=== PATIENT | male | born 1985 | race Caucasian/White ===

== ENCOUNTER 2019-02-13 07:03 | Emergency (ER) | payer OTHER ==
[~2019-02-13] VITALS: Wt 88.0 kg
[2019-02-13 07:07] VITALS: BP 135/87; PULSE 53; RESP 18
[2019-02-13] MEDS ORDERED: KETOROLAC 60 MG INJ IM STA (07:28)
[2019-02-13] MEDS ORDERED: HYDROCODONE/APAP (5/325) TAB PO ONE (07:30)
--- NOTE | 2019-02-13 08:09 | ERD ---
ER Documentation Chief Complaint Chief Complaint R wrist pain with swelling from lifting bricks days ago . no trauma HPI This is a 34-year-old male with a nonsignificant past medical history presents to ED with right dorsal wrist pain times 4 days. Patient states that he was lifting bricks 4 days ago and started to experience wrist pain. Patient rates pain at an 8 out of 10. Admits to some painful range of motion and decreased range of motion. Denies fever, chills, tingling, numbness, lack sensation, swelling and all other symptoms. No known drug allergies. No drug use. ROS All systems reviewed and are negative except as per history of present illness. Allergies Allergies: Coded Allergies: No Known Allergy (Unverified , 02/13/19) FmHx Family History: No diabetes Physical Exam Vitals Vital Signs Date Temp Pulse Resp B/P (MAP) Pulse Ox O2 O2 Flow FiO2 Time Delivery Rate 02/13/19 98.0 53 18 135/87 99 07:07 (103) Physical Exam Physical Exam Vitals signs: Reviewed by me. General: Well developed, well nourished, in no acute distress. Patient is awake and alert. Head: Normocephalic, atraumatic. Eyes: Normal conjunctiva, Pupils PERRLA, EOM intact grossly ENT: Pharynx is clear, Moist mucous membranes, external ears, nose and mouth normal MSK: No edema, no unilateral swelling, 5/5 strength Upper Extremity -right Skin: No laceration, or evidence of external trauma Compartments: Soft Motor: Full active range of motion shoulder/elbow/wrist/hand Sensation: Intact shoulder/pinky/middle finger/thumb web space Bones: Moderate tenderness palpation along dorsal wrist, nontender humerus/elbow/forearm/hand Snuffbox: Nontender Joints: No effusion Pulses/Perfusion: 2+ radial, Capillary refill < 2 seconds Radial ulnar and median nerve tested for sensory and motor function with no deficit Neurologic: Alert and oriented, moving all extremities, normal speech, no focal weakness, no cerebellar signs. Normal mentation Skin: warm and dry, No rash Psych: Normal mood Results 24 hrs Current Medications Medications Dose Sig/Sandra Start Time Status Last (Trade) Ordered Route PRN Stop Time Admin Dose Reason Admin Ketorolac 60 mg ONCE STAT 02/13/19 DC 02/13/19 Tromethamine IM 07:28 07:44 (Toradol) 02/13/19 07:30 1 tab ONCE ONCE 02/13/19 DC 02/13/19 Acetaminophen PO 07:30 07:45 / 02/13/19 07:31 Hydrocodone Bitart ([place] ()) Procedures/MDM EKG, MONITORS, & DIAGNOSTIC IMAGING: [place] [id number] Radiology Main Line: [phone] DIAGNOSTIC IMAGING REPORT Patient: SHARATH SMITH : 1985 Age: 34 Sex: M MR #: [id number] DOS: 02/13/19 0728 Ordering MD: EMANUEL HAGAN PA-C Location: [facility] Room/Bed: PROCEDURE: Right wrist x-ray CLINICAL INDICATION: right dorsal wrist pain TECHNIQUE: AP, lateral and oblique views of the wrist were obtained. COMPARISON: None FINDINGS: There is normal mineralization. No acute fracture or dislocation is seen. There are no significant degenerative changes. There is no significant soft tissue swelling. IMPRESSION: Normal x-ray of the right wrist. .Conrad Clark MD, MD Date Time Electronically viewed and signed by .Conrad Clark MD, MD on 02/13/2019 08:41 .A/ CC: EMANUEL HAGAN PA-C [phone] PROCEDURES: Splint Type: Velcro wrist splint Extremity: Right upper extremity Indication: Pain Splint Assessment: Neurovascularly intact post splint placement with good fit. The patient was consented at bedside prior to splint application and states understanding of risks, benefits, and alternatives. The patient was neurov ascularly intact prior to and status post application of the splint. The patient tolerated the procedure well and there were no complications ER COURSE: The patient was given IM Toradol and [place] The medication was well tolerated and the patient reports improvement in symptoms. The patient was stable throughout ED course. I kept the patient and/or family informed of laboratory and diagnostic imaging results throughout the emergency room course. The patient was promptly evaluated and a treatment plan was devised based on H&P and other data. This plan was discussed with the patient who agreed and had no further questions or concerns prior to discharge. MEDICAL DECISION MAKING: This is a 34-year-old male who presents ED with right dorsal wrist pain times 4 days. X-rays are unremarkable. This is likely a muscle strain given patient's line of work. Patient was advised to follow-up with hris specialist if pain continues. He may need an MRI to rule out any tendon or ligament injury. History and physical examination other data not consistent with emergent processes including but not limited to fracture, dislocation, tendon rupture, ischemia, neurovascular injury, compartment syndrome, septic joint, avascular necrosis, osteomyelitis, necrotizing fasciitis, septic joint, septic arthritis, or other emergent conditions. Patient's vitals are stable and can be managed outpatient with close follow-up. Advised patient to follow-up with primary care in the next 48 hours. Return to ED with any worsening symptoms. DISPOSITION PLAN: We discussed follow up with the patient's primary care doctor within 24 to 48 hours. Patient counseled regarding my diagnostic impression and care plan. Prior to discharge all questions answered. Pt agrees with treatment plan and understands strict return precautions. Precautionary instructions provided including instructions to return to the ER if not improving or for any worsening or changing symptoms or concerns. SPECIALIST FOLLOW UP RECOMMENDED: ortho Patient has been advised to follow up with primary care in 1-2 days. Disclaimer: Inadvertent spelling and grammatical errors are likely due to EHR/dictation software use and do not reflect on the overall quality of patient care. Also, please note that the electronic time recorded on this note does not necessarily reflect the actual time of the patient encounter. Blood Pressure Assessment: Patient's blood pressure was elevated (>120/80) but appears stable without evidence of hypertension emergency or urgency. The patient was counseled about the risks of hypertension and urged to pursue outpatient monitoring and therapy within a week with their primary care physician. Departure Diagnosis: Primary Impression: Pain in wrist Laterality: right Qualified Codes: M25.531 - Pain in right wrist Condition: Stable Patient Instructions: Hand and Wrist Exercises: Wrist Flexion, Wrist Splint, Velcro, Wrist Sprain Referrals: [facility]ARET[facility] CLAY [facility] H [facility] Additional Instructions: Patient advised to return to the ED immediately for new or worsening symptoms. Patient advised to follow up with primary care provider in the next 24-48 hours. Patient verbalized understanding and agrees with treatment plan and course of action. If patient has no primary care they may follow up with one of the community clinics listed on the following page or one of the options listed below [facility] + [facility] [address] [place] [id number] or [facility] [id number] [place] [id number] or [facility] [address] [place] [address] EMANUEL HAGAN PA-C Feb 13, 2019 08:09
[2019-02-13] MEDS ORDERED: IBUP800T48 PO (09:05)
== END 2019-02-13 09:14 | disposition home or self-care (01) ==
LOC: FTE 07:03
DX: M25.531 Pain in right wrist (principal)
CPT/HCPCS: 29125; 73110; 96372; J1885; Z7502; Z7610